=== PATIENT | female | born 1945 | race Caucasian/White ===

== ENCOUNTER 2020-06-16 09:51 | Outpatient (CLI) | payer MEDICARE ==
[~2020-06-16 09:51] MED LIST: FERRIC CARBOXYMALTOSE 750 MG in NORMAL SALINE 100 ML IV PRN
[2020-06-16 10:34] VITALS: BP 172/65
== END 2020-06-16 11:30 | disposition home or self-care (01) ==
LOC: II 09:51 → 5TH 10:35 → II 11:30
PROVIDERS: ATTEND Internal Medicine Nephrology
DX: D50.8 Other iron deficiency anemias (principal)
CPT/HCPCS: 96365; J7050; J1439

== ENCOUNTER 2020-06-23 09:56 | Outpatient (CLI) | payer MEDICARE ==
[~2020-06-23 09:56] MED LIST changes: -FERRIC CARBOXYMALTOSE 750 MG in NORMAL SALINE 100 ML IV PRN; +FERRIC CARBOXYMALTOSE 750 MG in NORMAL SALINE 250 ML IV PRN
[2020-06-23 10:29] VITALS: BP 188/83
== END 2020-06-23 11:15 | disposition home or self-care (01) ==
LOC: II 09:56 → 5TH 09:58 → II 11:15
PROVIDERS: ATTEND Internal Medicine Nephrology
DX: E61.1 Iron deficiency (principal)
CPT/HCPCS: 96365; J7050; J1439